=== PATIENT | male | born 1980 | race Caucasian/White ===

== ENCOUNTER 2019-06-13 15:50 | Inpatient (IN) | payer OTHER, SELFPAY ==
[~2019-06-13] VITALS: Ht 175.3 cm; Wt 81.6 kg
[2019-06-13 16:58] VITALS: Ht 175.3 cm; Wt 81.6 kg
[2019-06-13 17:05] LABS: BASOPHIL % 0.2 % (0-2); PLATELET COUNT 175 x10^3mcL (130-400); RED CELL DISTRIBUTION WIDTH 13.7 % (11.5-14.5)
[2019-06-13 17:15] LABS: CALCIUM 9.2 mg/dL (8.5-10.1); CARBON DIOXIDE 32.1 mmol/L (21-32); CHLORIDE SERUM 100 mmol/L (98-107); CREATININE SERUM 0.9 mg/dL (0.7-1.3); GFR1 > 60 mL/min; GLUCOSE SERUM 98 mg/dL (74-106); POTASSIUM SERUM 4.5 mmol/L (3.5-5.1); SODIUM SERUM 137 mmol/L (136-145)
[2019-06-13 17:20] LABS: ALBUMIN 3.4 g/dL (3.4-5.0); ALKALINE PHOSPHATASE 51 U/L (46-116); ALT/SGPT 114 U/L (16-63); AST/SGOT 114 U/L (15-37); BILIRUBIN TOTAL 0.39 mg/dL (0.20-1.00); LACTIC DEHYDROGENASE (LDH) 466 U/L (100-190); TOTAL PROTEIN, SERUM 7.8 g/dL (6.4-8.2)
[2019-06-13] MEDS ORDERED: MORGIDOX 1X100100 MG PO (19:19)
[2019-06-13] MEDS ORDERED: BENZONATATE150 MG (19:21)
[2019-06-13] MEDS ORDERED: ACETAMINOPHEN650 M6 (19:21)
[2019-06-13] MEDS ORDERED: BENZONATATE150 MG PO (19:22)
[2019-06-13] MEDS ORDERED: CAPSAICIN42.5 GM (19:23)
[2019-06-13 20:47] VITALS: BP 107/67
[2019-06-13 21:26] VITALS: BP 99/66
[2019-06-14 06:02] VITALS: BP 107/68
[2019-06-14 06:52] LABS: BASOPHIL % 0.3 % (0-2); PLATELET COUNT 192 x10^3mcL (130-400); RED CELL DISTRIBUTION WIDTH 13.7 % (11.5-14.5)
[2019-06-14 07:20] LABS: C REACTIVE PROTEIN 1.7 mg/dL (<=0.9); CALCIUM 8.7 mg/dL (8.5-10.1); CARBON DIOXIDE 30.1 mmol/L (21-32); CHLORIDE SERUM 101 mmol/L (98-107); CREATININE SERUM 0.8 mg/dL (0.7-1.3); GFR1 > 60 mL/min; GLUCOSE SERUM 102 mg/dL (74-106); POTASSIUM SERUM 4.5 mmol/L (3.5-5.1); SODIUM SERUM 140 mmol/L (136-145)
[2019-06-14 09:21] VITALS: BP 117/77
[2019-06-14 11:01] VITALS: BP 107/79
[2019-06-14 20:20] VITALS: BP 104/60
[2019-06-15 07:10] LABS: BASOPHIL % 0.5 % (0-2); PLATELET COUNT 247 x10^3mcL (130-400); RED CELL DISTRIBUTION WIDTH 13.7 % (11.5-14.5)
[2019-06-15 07:16] LABS: CARBON DIOXIDE 28.2 mmol/L (21-32); CHLORIDE SERUM 103 mmol/L (98-107); CREATININE SERUM 0.8 mg/dL (0.7-1.3); GFR1 > 60 mL/min; GLUCOSE SERUM 102 mg/dL (74-106); POTASSIUM SERUM 4.1 mmol/L (3.5-5.1); SODIUM SERUM 141 mmol/L (136-145)
[2019-06-15 07:24] VITALS: BP 104/74
[2019-06-15 07:45] VITALS: BP 106/69
[2019-06-15 11:14] VITALS: BP 106/69
[2019-06-15 11:50] VITALS: BP 108/60
== END 2019-06-15 13:50 | disposition other institution (70) | DRG 177 ==
LOC: ED 15:50 → DU 17:24
PROVIDERS: Emergency Medicine; ADMIT Internal Medicine
DX: U07.1 COVID-19 (principal); J96.01 Acute respiratory failure with hypoxia; J12.89 Other viral pneumonia; R74.0 Nonspecific elevation of levels of transaminase and lactic acid dehydrogenase [LDH]
CPT/HCPCS: 36600; 85378; 87804; G0378; J0456; J0696; J1650; J3490; J3535; J7030; J7050; Q0092